=== PATIENT | female | born 1995 | race Hispanic/Latino ===

== ENCOUNTER 2024-11-03 23:59 | Emergency (ER) | payer OTHER ==
[~2024-11-03] VITALS: Ht 144.8 cm; Wt 70.8 kg
[2024-11-04] MEDS ORDERED: ONDANSETRON HCL 4 MG ORAL DISINTEGRATING TAB ONE (00:41)
[2024-11-04] MEDS: ACETAMINOPHEN 325 MG TAB PO ONE (00:48)
[2024-11-04] MEDS: ONDANSETRON HCL 4 MG ORAL DISINTEGRATING TAB PO ONE (00:59)
[2024-11-04 01:08] LABS: CORONAVIRUS COVID-19 AG NEGATIVE (NEGATIVE)
[2024-11-04 01:42] VITALS: PULSE 115; RESP 19; TEMP 100.5; O2SAT 99
== END 2024-11-04 02:11 | disposition home or self-care (01) ==
LOC: ER 11-04 00:17
DX: R50.9 Fever, unspecified (principal); J11.1 Influenza due to unidentified influenza virus with other respiratory manifestations; Z11.52 Encounter for screening for COVID-19
CPT/HCPCS: 71046; 87428; 99284; Q0162